=== PATIENT | female | born 1975 | race African-American/Black ===

== ENCOUNTER 2016-12-18 16:55 | Emergency (ER) | payer OTHER ==
[~2016-12-18] VITALS: Ht 167.6 cm; Wt 81.1 kg
[2016-12-18 17:27] LABS: HEMATOCRIT 41.8 % (36.0-46.0); MCH 26.4 PG (29.0-34.0); MCHC 32.1 G/DL (30.0-36.0); MCV 82.3 FL (83-99); MEAN PLAT.VOLUME 11.3 uM^3 (9.5-12.4); PLATELET COUNT 156 K/uL (156-360); RBC DIS.WIDTH-CV 12.6 % (11.8-14.6); RBC DIS.WIDTH-SD 38.1 % (39-53); RED BLOOD COUNT 5.08 M/uL (3.80-5.20); WHITE BLOOD COUNT 8.8 K/uL (4.1-10.2)
[2016-12-18 17:40] LABS: CHLORIDE 103 mEq/L (99-109); GLUCOSE 81 mg/dL (70-99); POTASSIUM 4.1 mEq/L (3.7-5.4); SODIUM 137 mEq/L (136-147)
[2016-12-18 17:42] LABS: ANION GAP 11 MEQ/L (2-14)
[2016-12-18 17:45] LABS: UREA NITROGEN (BUN) 13 mg/dL (9-23)
[2016-12-18 17:49] LABS: GFR ESTIMATE (CALCULATED) > 59 mL/min/
[2016-12-18 17:50] LABS: TROP-I INTERPRETATION NEGATIVE; TROPONIN-I < 0.01 ng/mL (0.0-0.30)
[2016-12-18 17:58] LABS: D-DIMER ELISA 0.34 mg/L FEU (< 0.57)
[2016-12-18 18:06] LABS: QUANTITATIVE HCG < 4.0 MIU/ML
[2016-12-18 19:51] LABS: TROP-I INTERPRETATION NEGATIVE; TROPONIN-I < 0.01 ng/mL (0.0-0.30)
[2016-12-18 20:34] VITALS: BP 140/89
== END 2016-12-18 20:40 | disposition home or self-care (01) ==
LOC: EME 16:55
PROVIDERS: Emergency Medicine
DX: R07.9 Chest pain, unspecified (principal)
CPT/HCPCS: 71020; 80048; 84484; 84702; 85027; 85379; 93005; 99281; 99285